=== PATIENT | male | born 1955 | race Caucasian/White ===

== ENCOUNTER 2018-09-10 13:55 | Day surgery (SDC) | payer OTHER, SELFPAY ==
[2018-09-10 14:10] VITALS: BMI 26.7
[2018-09-10 14:14] VITALS: BP 117/70; PULSE 48; RESP 20; TEMP 36.8; O2SAT 98
[2018-09-10] MEDS: SODIUM CHLORIDE 0.9% 1,000 ML 200 ML IV (14:23)
--- NOTE | 2018-09-10 14:25 | PM.HP.1 ---
History of Present Illness Chief complaint: colonoscopy [id number] Patient History Social History household members: spouse Family & Social History Social History: household members spouse Meds Home Medications Medication Instructions Recorded Confirmed Type No Known Home Medications 09/10/18 09/10/18 History Allergies Allergy/AdvReac Type Severity Reaction Status Date / Time No Known Drug Allergies Allergy Verified 09/10/18 14:09 Review of Systems Review of Systems All systems reviewed & are unremarkable except as noted in HPI and below Exam Vital Signs (past 8 hours): - 09/10/18 14:14 Temperature 98.3 F Pulse Rate 48 L Respiratory Rate 20 Blood Pressure 117/70 Pulse Oximetry 98 Oxygen Delivery Method Room Air Narrative Exam Narrative: Cardiac exam shows no murmur gallop or rub lungs are clear with no rales or wheezes abdomen is soft and no organomegaly no tenderness rectal will be done at time of colonoscopy Assessment & Plan Assessment & Plan narrative: Plan is screening colonoscopy the patient is asymptomatic no melena hematochezia or pain
[2018-09-10] MEDS: MIDAZOLAM 5 MG/5 ML VIAL IV (14:26)
[2018-09-10] MEDS: fentaNYL 250 MCG/5 ML INJ IV (14:26)
--- NOTE | 2018-09-10 14:54 | PM.OP.1 ---
Operative Date/Time/Diagnoses Date of procedure: 09/10/18 Time of procedure: 14:54 Pre-op diagnosis: Screening colonoscopy Post-op diagnosis: same Procedure & Clinicians Same procedure as scheduled: Yes Click Yes if Unassisted: Yes Anesthesia Type: Sedation Operative Notes Findings: Patient had a normal colonoscopy Procedure in detail: Patient was properly identified during surgical pause given conscious sedation with fentanyl and Versed the flexible fiberoptic colonoscope was inserted transanally to the cecum patient had a normal exam with no polyps tumors ulcerations or diverticuli total sedation time 20 minutes procedures very well tolerated Complications: none Condition: stable Disposition: PACU
[2018-09-10 15:05] VITALS: BP 115/74; PULSE 55; RESP 16; TEMP 36.8; O2SAT 100
== END 2018-09-10 15:30 ==
LOC: ENDO 13:58
PROVIDERS: Family Provider Family Medicine; PCP Family Medicine; Visit Provider Surgery
PROC: 0DJD8ZZ Inspection of Lower Intestinal Tract, Via Natural or Artificial Opening Endoscopic (ICD-10-PCS; CPT 45378; principal; 2018-09-10 15:00)
DX: Z12.11 Encounter for screening for malignant neoplasm of colon (principal)
CPT/HCPCS: 45378; J2250; J3010

== ENCOUNTER 2024-05-04 11:22 | Day surgery (SDC) | payer OTHER, SELFPAY ==
[2024-05-04 11:41] VITALS: BP 133/85; PULSE 60; RESP 16; TEMP 36.6; O2SAT 97
--- NOTE | 2024-05-04 12:16 | P.HP_ITS ---
History of Present Illness History of Present Illness Chief complaint: [facility] [place] Narrative: Family history of colon cancer in his father. Need for follow-up colonoscopy [facility] Social History household members: spouse Smoking Status: Never smoker alcohol intake: current Meds Home Medications and Allergies Home Medications Medication Instructions Recorded Confirmed Type No Known Home Medications 09/10/18 05/04/24 History Allergies Allergy/AdvReac Type Severity Reaction Status Date / Time No Known Drug Allergies Allergy Verified 05/04/24 11:41 Exam Vital Signs (past 8 hours): - 05/04/24 11:41 Temperature 97.9 F Pulse Rate 60 Respiratory Rate 16 Blood Pressure 133/85 Pulse Oximetry 97 Oxygen Delivery Method Room Air Oxygen Flow Rate 0 Oxygen Delivery Method Room Air Oxygen Flow Rate 0 Narrative Exam Narrative: Oropharynx free of lesions Chest clear to auscultation percussion Cardiac exam reveals no S3 or murmur Assessment & Plan Assessment & Plan narrative: Family history of colon cancer in a first-degree relative need for follow-up colonoscopy. Risks, benefits, alternatives have been explained. Time-Based Coding :: [TOTAL MINUTES] spent with patient and on the chart (including review of chart, obtaining history, exam, reviewing outside data, placing orders, documenting exam and treatment plan, and counseling patient) on [DATE].
--- NOTE | 2024-05-04 12:17 | PM.OP.COLON ---
Operative Date/Time/Diagnoses Date of procedure: 05/04/24 Pre-op diagnosis: See indication and findings Procedure & Clinicians Study performed: Colonoscopy Indications: Family history of colon cancer Surgeon: Jaimee Hickman Procedure Notes Procedure in detail: After informed consent was obtained the patient was placed in left lateral decubitus position. The video colonoscope was inserted into the rectum easily passed cecum. Preparation was good. On slow withdrawal mucosa was carefully examined. The scope was removed. The patient tolerated procedure well. Blood loss none Complications none Sedation mac Findings 1. Normal colonoscopy to cecum other than mild internal hemorrhoids Patient should have follow-up colonoscopy in 5-10 years.
[2024-05-04 12:50] VITALS: BP 107/61; PULSE 61; RESP 20; TEMP 36.3; O2SAT 94
[2024-05-04 12:55] VITALS: BP 105/67; PULSE 62; RESP 20; TEMP 36.3; O2SAT 95
[2024-05-04 13:10] VITALS: BP 112/76; PULSE 70; RESP 14; O2SAT 95
== END 2024-05-04 13:15 | disposition home or self-care (01) ==
PROVIDERS: Family Provider Family Medicine; PCP Family Medicine; Referring Provider Internal Medicine Gastroenterology; Visit Provider Internal Medicine Gastroenterology
PROC: 0DJD8ZZ Inspection of Lower Intestinal Tract, Via Natural or Artificial Opening Endoscopic (ICD-10-PCS; CPT 45378; principal; 2024-05-04 12:30)
DX: Z12.11 Encounter for screening for malignant neoplasm of colon (principal); Z80.0 Family history of malignant neoplasm of digestive organs; K64.8 Other hemorrhoids
CPT/HCPCS: 45378; J2704